=== PATIENT | male | born 1990 | race African-American/Black ===

== ENCOUNTER 2016-10-18 18:12 | Emergency (ER) | payer OTHER ==
[2016-10-18 18:22] VITALS: BP 128/90
[2016-10-18] MEDS ORDERED: ERYT1OIN6 OS (19:00)
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
== END 2016-10-18 19:05 | disposition home or self-care (01) ==
LOC: ER 18:12
DX: H00.025 Hordeolum internum left lower eyelid (principal); J45.909 Unspecified asthma, uncomplicated; F17.200 Nicotine dependence, unspecified, uncomplicated
CPT/HCPCS: 99283

== ENCOUNTER 2017-08-23 16:58 | Emergency (ER) | payer OTHER | END 2017-08-23 18:22 | disposition home or self-care (01) | LOC: ER 16:58 | DX: M25.562 Pain in left knee (principal); J45.909 Unspecified asthma, uncomplicated | CPT/HCPCS: 29505; 73564; 99284-25 ==

== ENCOUNTER 2017-12-30 14:44 | Emergency (ER) | payer OTHER | END 2017-12-30 16:47 | disposition home or self-care (01) | LOC: ER 14:44 | DX: L84 Corns and callosities (principal); L30.9 Dermatitis, unspecified; J45.909 Unspecified asthma, uncomplicated | CPT/HCPCS: 99283 ==

== ENCOUNTER 2018-04-07 17:15 | Emergency (ER) | payer OTHER ==
[~2018-04-07] VITALS: Ht 182.9 cm; Wt 104.3 kg
[~2018-04-07 17:15] MED LIST: ERYT1OIN6 OS; TRIA15CR3 TP
[2018-04-07 17:47] VITALS: BP 127/70
[2018-04-07] MEDS ORDERED: ACET-704 PO (18:14)
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
[2018-04-07] MEDS ORDERED: DIPHTH,PERTUSS(ACELL),TET TOX 0.5 ML DISP.SYRIN. VAX IM ONE (18:15)
== END 2018-04-07 18:42 | disposition home or self-care (01) ==
LOC: ER 17:15
DX: S90.822A Blister (nonthermal), left foot, initial encounter (principal); S90.821A Blister (nonthermal), right foot, initial encounter; J45.909 Unspecified asthma, uncomplicated; X58.XXXA Exposure to other specified factors, initial encounter; Y93.89 Activity, other specified; Y92.89 Other specified places as the place of occurrence of the external cause; Y99.8 Other external cause status
CPT/HCPCS: 90471; 90715; 99283-25

== ENCOUNTER 2019-04-21 12:53 | Emergency (ER) | payer OTHER ==
[~2019-04-21] VITALS: Ht 182.9 cm; Wt 88.5 kg
[~2019-04-21 12:53] MED LIST changes: +ACET-704 PO
[2019-04-21 14:21] VITALS: BP 120/83
[2019-04-21] MEDS ORDERED: TRIA15CR TP (14:43)
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
== END 2019-04-21 15:08 | disposition home or self-care (01) ==
LOC: ER 12:53
DX: L25.9 Unspecified contact dermatitis, unspecified cause (principal); J45.909 Unspecified asthma, uncomplicated
CPT/HCPCS: 99283

== ENCOUNTER 2019-05-05 16:35 | Emergency (ER) | payer OTHER ==
[~2019-05-05] VITALS: Ht 182.9 cm; Wt 88.5 kg
[~2019-05-05 16:35] MED LIST changes: +TRIA15CR TP
[2019-05-05 17:05] VITALS: BP 147/83
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
[2019-05-05] MEDS ORDERED: HYDR-3164 PO (18:20)
[2019-05-05] MEDS ORDERED: AMOX1TAB61 PO (18:20)
== END 2019-05-05 18:41 | disposition home or self-care (01) ==
LOC: ER 16:35
DX: S02.2XXA Fracture of nasal bones, initial encounter for closed fracture (principal); J45.909 Unspecified asthma, uncomplicated; F32.9 Major depressive disorder, single episode, unspecified; Y08.89XA Assault by other specified means, initial encounter; Y93.89 Activity, other specified; Y92.89 Other specified places as the place of occurrence of the external cause; Y99.8 Other external cause status
CPT/HCPCS: 70486; 99284

== ENCOUNTER 2019-05-20 22:50 | Emergency (ER) | payer OTHER ==
[~2019-05-20 22:50] MED LIST changes: +AMOX1TAB61 PO; +HYDR-3164 PO
== END 2019-05-20 23:25 | disposition left against medical advice (07) ==
LOC: ER 22:50
DX: T14.8XXD Other injury of unspecified body region, subsequent encounter (principal); Z53.21 Procedure and treatment not carried out due to patient leaving prior to being seen by health care provider

== ENCOUNTER 2019-06-29 12:54 | Emergency (ER) | payer OTHER ==
[~2019-06-29] VITALS: Ht 182.9 cm; Wt 88.5 kg
[2019-06-29 13:00] VITALS: BP 156/75
[2019-06-29] MEDS ORDERED: diphenhydrAMINE HCL 25 MG CAPSULE PO ONE (13:45)
[2019-06-29 14:07] LABS: CALCIUM 8.6 mg/dL (8.5-10.1); CREATININE 0.8 mg/dL (0.7-1.3); GFR 136.4; POTASSIUM 3.6 mmol/L (3.5-5.1)
[2019-06-29] MEDS ORDERED: KETOROLAC 60 MG/2 ML VIAL. IM ONE (14:15)
[2019-06-29] MEDS ORDERED: IBUP-1007 PO (14:47)
[2019-06-29] MEDS ORDERED: METH4TAB2 PO (14:47)
[2019-06-29] MEDS ORDERED: DIPH25TA64 PO (14:47)
[2019-06-29] MEDS ORDERED: CYCL10TA2 PO (14:47)
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
== END 2019-06-29 15:00 | disposition home or self-care (01) ==
LOC: ER 12:54
DX: M62.838 Other muscle spasm (principal); L50.9 Urticaria, unspecified; J45.909 Unspecified asthma, uncomplicated
CPT/HCPCS: 36415; 80048; 96372; 99283; J1885; Q0163

== ENCOUNTER 2019-09-18 13:14 | Emergency (ER) | payer OTHER ==
[~2019-09-18] VITALS: Ht 182.9 cm; Wt 86.3 kg
[~2019-09-18 13:14] MED LIST changes: +CYCL10TA2 PO; +DIPH25TA64 PO; +IBUP-1007 PO; +METH4TAB2 PO
[2019-09-18 13:36] VITALS: BP 135/77
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
== END 2019-09-18 14:04 | disposition home or self-care (01) ==
LOC: ER 13:14
DX: M79.672 Pain in left foot (principal); M79.671 Pain in right foot; J45.909 Unspecified asthma, uncomplicated; F17.200 Nicotine dependence, unspecified, uncomplicated
CPT/HCPCS: 99281

== ENCOUNTER 2020-12-18 17:37 | Emergency (ER) | payer OTHER ==
[~2020-12-18] VITALS: Ht 182.9 cm; Wt 91.0 kg
[2020-12-18 17:50] VITALS: BP 135/77
[2020-12-18] MEDS ORDERED: ORPHENADRINE CITRATE 60 MG/2 ML VIAL. IM ONE (18:30)
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
[2020-12-18] MEDS ORDERED: CYCL10TA2 PO (20:34)
[2020-12-18] MEDS ORDERED: NAPR-514 PO (20:34)
== END 2020-12-18 20:45 | disposition home or self-care (01) ==
LOC: ER 17:37
DX: S16.1XXA Strain of muscle, fascia and tendon at neck level, initial encounter (principal); S00.83XA Contusion of other part of head, initial encounter; R07.89 Other chest pain; M79.604 Pain in right leg; R07.81 Pleurodynia; M25.561 Pain in right knee; M25.551 Pain in right hip; J45.909 Unspecified asthma, uncomplicated; F17.200 Nicotine dependence, unspecified, uncomplicated; V49.59XA Passenger injured in collision with other motor vehicles in traffic accident, initial encounter; Y93.89 Activity, other specified; Y92.488 Other paved roadways as the place of occurrence of the external cause; Y99.8 Other external cause status
CPT/HCPCS: 70450; 70486; 71111; 72125; 73502; 73562; 73590; 96372; 99285; J2360

== ENCOUNTER 2021-06-03 00:23 | Emergency (ER) | payer OTHER ==
[~2021-06-03] VITALS: Ht 182.9 cm; Wt 195.0 kg
[~2021-06-03 00:23] MED LIST changes: +CYCL10TA19 PO; -CYCL10TA2 PO; +ERYT1OIN3 OS; -ERYT1OIN6 OS; +NAPR-514 PO
[2021-06-03] MEDS ORDERED: KETOROLAC 60 MG/2 ML VIAL. IM ONE (01:30)
[2021-06-03] MEDS ORDERED: HYDR-2761 PO (01:32)
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
[2021-06-03 02:24] VITALS: BP 137/82
== END 2021-06-03 01:42 | disposition home or self-care (01) ==
LOC: ER 00:23
DX: M79.642 Pain in left hand (principal); J45.909 Unspecified asthma, uncomplicated; F17.200 Nicotine dependence, unspecified, uncomplicated
CPT/HCPCS: 96372; 99283; J1885

== ENCOUNTER 2021-10-13 20:15 | Emergency (ER) | payer OTHER ==
[~2021-10-13] VITALS: Ht 182.9 cm; Wt 103.0 kg
[~2021-10-13 20:15] MED LIST changes: +HYDR-2761 PO
[2021-10-13 20:20] VITALS: BP 139/91
[2021-10-13] MEDS ORDERED: KETOROLAC 30 MG/ML VIAL. IM ONE (21:00)
[2021-10-13] MEDS ORDERED: DEXAMETHASONE 4 MG TABLET PO ONE (21:00)
[2021-10-13] MEDS ORDERED: PRED20TA PO (21:01)
[2021-10-13] MEDS ORDERED: ORPH100T PO (21:01)
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
== END 2021-10-13 21:25 | disposition home or self-care (01) ==
LOC: ER 20:15
DX: G89.29 Other chronic pain (principal); M54.41 Lumbago with sciatica, right side; M54.42 Lumbago with sciatica, left side; J45.909 Unspecified asthma, uncomplicated; F17.200 Nicotine dependence, unspecified, uncomplicated
CPT/HCPCS: 96372; 99283; J1885